=== PATIENT | male | born 1965 | race Caucasian/White ===

== ENCOUNTER 2017-02-07 17:43 | Emergency (ER) | payer OTHER ==
[~2017-02-07] VITALS: Ht 175.3 cm; Wt 65.8 kg
[2017-02-07] MEDS ORDERED: KETOROLAC 30 MG/ML VIAL (J1885) IV ONE (18:30)
[2017-02-07 19:07] LABS: BASO # 0.1 K/mm3 (0.0-0.2); BASO % 0.7 % (0.0-1.0); EOS # 0.3 K/mm3 (0.0-0.50); EOS % 3.4 % (0.0-3.0); LARGE UNSTAINED CELL # 0.3 K/mm3 (0.0-0.4); LARGE UNSTAINED CELL % 3.2 % (0.0-4.0); LYMPH # 4.3 K/mm3 (1.5-4.5); LYMPH % 42.7 % (24.0-44.0); MEAN CORPUSCULAR HEMOGLOBIN 29.9 pg (27.0-33.0); MEAN CORPUSCULAR HGB CONC 31.3 g/dl (32.0-36.5); MEAN CORPUSCULAR VOLUME 95.5 fl (80.0-96.0); MONO # 0.7 K/mm3 (0.0-0.8); MONO % 6.9 % (0.0-5.0); NEUTROPHILS % 43.1 % (36.0-66.0); PLATELET COUNT, AUTOMATED 262 k/mm3 (150-450); RED CELL DISTRIBUTION WIDTH 12.6 % (11.5-14.5); WHITE BLOOD COUNT 9.4 K/mm3 (4.0-10.0)
--- NOTE | 2017-02-07 19:20 | REP ---
Clinical: Right groin pain. Evaluate for hernia. Technique: The time cotto scale ultrasound examination using curved linear high frequency transducer. Findings: Directed ultrasound examination of the right groin and inguinal canal during normal respiration and Valsalva demonstrates normal soft tissues. No fluid collection, mass, or hernia. Impression: Normal right groin and inguinal canal. No evidence for acute hernia. Signed by Chucho Harrison MD 02/07/2017 07:11 P
[2017-02-07 19:22] LABS: ANION GAP 7 MEQ/L (8-16); BLOOD UREA NITROGEN 10 MG/DL (7-18); CALCIUM LEVEL 9.3 MG/DL (8.5-10.1); CARBON DIOXIDE LEVEL 32 MEQ/L (21-32); CHLORIDE LEVEL 102 MEQ/L (98-107); CREATININE FOR GFR 0.96 MG/DL (0.70-1.30); GLOMERULAR FILTRATION RATE > 60.0 (>60); GLUCOSE, FASTING 85 MG/DL (70-105); POTASSIUM SERUM 4.4 MEQ/L (3.5-5.1); SODIUM LEVEL 141 MEQ/L (136-145)
--- NOTE | 2017-02-07 19:24 | REP ---
Clinical: Abdominal and right lower quadrant/groin pain. Technique: Single supine view of the abdomen and pelvis. Findings: Bowel gas pattern is nonspecific. No organomegaly. No abnormal calcifications. Skeletal structures are intact and normal for age. Impression: Nonspecific bowel gas pattern. Signed by Chucho Harrison MD 02/07/2017 07:16 P
[2017-02-07] MEDS ORDERED: NAPR500T PO (19:39)
[2017-02-07 19:50] VITALS: BP 123/84
== END 2017-02-07 19:52 | disposition home or self-care (01) ==
LOC: M ED 18:51
DX: R10.30 Lower abdominal pain, unspecified (principal); F17.200 Nicotine dependence, unspecified, uncomplicated; J44.9 Chronic obstructive pulmonary disease, unspecified; Z88.1 Allergy status to other antibiotic agents
CPT/HCPCS: 74000; 76857; 80048; 81001; 83605; 85025; 96374; 99282; J1885

== ENCOUNTER 2018-02-28 17:08 | Emergency (ER) | payer SELFPAY, MEDICAID, OTHER ==
[2018-02-28] MEDS: PERCOCET 5MG/325MG TAB PO (20:42)
== END 2018-02-28 20:49 | disposition home or self-care (01) ==
LOC: M ED 17:08
DX: S20.222A Contusion of left back wall of thorax, initial encounter (principal); R93.7 Abnormal findings on diagnostic imaging of other parts of musculoskeletal system; W19.XXXA Unspecified fall, initial encounter; Y92.89 Other specified places as the place of occurrence of the external cause; J44.9 Chronic obstructive pulmonary disease, unspecified; F17.210 Nicotine dependence, cigarettes, uncomplicated; Z88.1 Allergy status to other antibiotic agents; Z79.1 Long term (current) use of non-steroidal anti-inflammatories (NSAID)
CPT/HCPCS: 71101